=== PATIENT | female | born 1975 | race Caucasian/White ===

== ENCOUNTER 2017-01-12 10:51 | Emergency (ER) | payer SELFPAY ==
[~2017-01-12] VITALS: Ht 157.5 cm; Wt 78.0 kg
[~2017-01-12 10:51] MED LIST: VICODIN
[2017-01-12 10:58] VITALS: Ht 157.5 cm; Wt 78.0 kg
[2017-01-12] MEDS ORDERED: CEPH-443 PO (12:44)
--- NOTE | 2017-01-12 12:44 | ERD ---
ER Documentation Chief Complaint Date/Time DATE: 01/12/17 TIME: 12:41 Chief Complaint left ear pain x 4 days HPI This 41-year-old female who presents to the emergency department today complaining of left-sided ear pain for the past 3-4 days. She states that she had itching in her ear yesterday. States she has pain at the top of her chest as well when she rolled over in bed.. Patient took Zyrtec yesterday. States that 4 weeks ago she had a dental infection and have the tooth removed and was given antibiotics that she is unsure what the name of it was. Denies any fevers or chills. ROS All systems reviewed and are negative except as per history of present illness. Medications Home Meds Active Scripts Fluticasone Propionate (Flonase Allergy Relief) 9.9 Ml [place].susp, 1 SPRAY NASAL DAILY, #1 BOTTLE TO EACH NOSTRIL Prov:KARINA MCKAY PA-C 01/12/17 Naproxen* (Naprosyn*) 500 Mg Tablet, 500 MG PO BID Y for PAIN AND/OR INFLAMMATION, #30 TAB Prov:KARINA MCKAY PA-C 01/12/17 Cephalexin* (Keflex*) 500 Mg Capsule, 500 MG PO QID for 7 Days, CAP Prov:KARINA MCKAY PA-C 01/12/17 Reported Medications [Vicodin] No Conflict Check 02/02/11 Allergies Allergies: Coded Allergies: No Known Allergy (Verified , 07/21/13) PMhx/Soc History of Surgery: Yes (GALLBLADDER REMOVAL X1 YEAR AGO appy 2x c section) Anesthesia Reaction: No Hx Neurological Disorder: No Hx Respiratory Disorders: No Hx Cardiac Disorders: No Hx Psychiatric Problems: No Hx Miscellaneous Medical Probl: No Hx Alcohol Use: No Hx Substance Use: No Hx Tobacco Use: No Physical Exam Vitals Vital Signs Date Time Temp Pulse Resp B/P Pulse Ox O2 Delivery O2 Flow Rate FiO2 01/12/17 10:58 98.1 67 18 140/68 99 Physical Exam Const: NAD, talkative Head: Atraumatic Eyes: Normal Conjunctiva ENT: Ears TMs normal. No purulent drainage. Nose no drainage. Throat no erythema no exudate. Evidence of tooth removed left side of bottom molar. No evidence of abscess. Nontender mastoid. Tenderness left-sided TMJ joint. Neck: Full range of motion..~ No meningismus. Resp: Clear to auscultation bilaterally no absent breath sounds. No wheezing. Tenderness to palpation and tenderness with trunk rotation to the right Cardio: Regular rate and rhythm, no murmurs Abd: Soft, non tender, non distended. Normal bowel sounds Skin: No petechiae or rashes Neur: Awake and alert Psych: Normal Mood and Affect Procedures/MDM This 41-year-old female who presents to the emergency department today with multiple complaints. Patient's physical exam is benign. She did have some mild tenderness to palpation at her TM joint on the left side. TMs are normal and there is no evidence of infection at this time. He is nontender mastoid. Low suspicion for otitis media, otitis externa, mastoiditis. Patient is afebrile and otherwise well appearing. Patient's symptoms at this time is consistent with TMJ dysfunction versus eustachian tube dysfunction. Patient was complaining of some upper left-side chest pain after rolling over in bed a couple of days ago she has some tenderness palpation with compression and pain with trunk rotation. Did not felt the patient requires laboratory work or imaging at this time. Her respirations are 18 her oxygen saturation is 99%. Low suspicion for PE, abscess, pneumothorax, pleural effusion. Patient's symptoms appear more consistent with costochondritis given the tenderness to palpation and pain with trunk rotation. Patient is talkative and in no acute distress Patient was instructed to continue taking her Zyrtec. Also given a prescription for Flonase, Naprosyn and Keflex to treat possible dental infection. He is no evidence to suggest that patient has dental abscess at this time. At this time the patient is stable for discharge and outpatient management. Patient should follow up with their PCP in the next 1-2 days. They may return to the emergency department sooner for any persistent or worsening of symptoms. Patient understood and agreed with the plan. Discussed the patient with Dr. Skelton and he is in agreement with the plan. Departure Diagnosis: Primary Impression: Left ear pain Condition: KARINA Godinez PA-C Jan 12, 2017 12:44
[2017-01-12] MEDS ORDERED: NAPR-260 PO (12:45)
[2017-01-12] MEDS ORDERED: FLUT9.9S NASAL (12:45)
== END 2017-01-12 13:05 | disposition home or self-care (01) ==
LOC: FTE 10:51
DX: H92.02 Otalgia, left ear (principal)
CPT/HCPCS: 99283

== ENCOUNTER 2018-11-22 17:35 | Emergency (ER) | END 2018-11-22 22:05 | disposition home or self-care (01) ==

== ENCOUNTER 2018-12-09 00:56 | Emergency (ER) | payer OTHER ==
[~2018-12-09] VITALS: Ht 160 cm; Wt 77.7 kg
[~2018-12-09 00:56] MED LIST changes: +CEPH-443 PO; +FLUT9.9S NASAL; +IBUP-1542 PO; +NAPR-985 PO
[2018-12-09 01:01] VITALS: Ht 160 cm; Wt 77.7 kg
[2018-12-09] MEDS ORDERED: ACETAMINOPHEN 325 MG TAB PO STA (01:54)
[2018-12-09] MEDS ORDERED: SOD CHLORIDE 0.9% 1,000 ML IV STA (01:54)
--- NOTE | 2018-12-09 01:54 | ERD ---
ER Documentation Chief Complaint Chief Complaint left lower abd pain x 1 hour, hx of ovarian cyst, 9 weeks , no vb HPI 43-year-old woman complains of diffuse lower abdominal cramping for the last 1-2 hours. She is about 9 weeks by dates and on previously confirmed obstetric ultrasound which revealed an intrauterine at also revealed right ovarian cyst. She denies vaginal bleeding, no dysuria, no fevers or chills, no dizziness or loss of consciousness ROS All systems reviewed and are negative except as per history of present illness. Medications Home Meds Active Scripts Acetaminophen* (Tylenol*) 325 Mg Tablet, 2 TAB PO TID PRN for PAIN AND/OR INFLAMMATION, #60 TAB Prov:CHANTELLE BROWN MD 12/09/18 Reported Medications Ferrous Sulfate* (Ferrous Sulfate*) 325 Mg Tabec, 325 MG PO BID, TAB 12/09/18 Calcium Carbonate ([place]co-500) 500 Mg Tablet, 500 MG PO DAILY, TAB 12/09/18 Vit No.124/Iron/FA ( Vitamin Tablet) 1 Each Tablet, 1 EACH PO DAILY for SUPPLEMENT, TAB 12/09/18 Discontinued Reported Medications [Vicodin] No Conflict Check 02/02/11 Discontinued Scripts Ibuprofen* (Motrin*) 600 Mg Tab, 600 MG PO Q6H PRN for PAIN AND OR ELEVATED TEMP, #30 TAB Prov:ISIDRO SOUTH MD 08/05/18 Fluticasone Propionate (Flonase Allergy Relief) 9.9 Ml [place].susp, 1 SPRAY NASAL DAILY, #1 BOTTLE TO EACH NOSTRIL Prov:KARINA MCKAY PA-C 01/12/17 Naproxen* (Naprosyn*) 500 Mg Tablet, 500 MG PO BID PRN for PAIN AND/OR INFLAMMATION, #30 TAB Prov:KARINA MCKAY PA-C 01/12/17 Cephalexin* (Keflex*) 500 Mg Capsule, 500 MG PO QID for 7 Days, CAP Prov:KARINA MCKAY PA-C 01/12/17 Allergies Allergies: Coded Allergies: No Known Allergy (Verified , 11/22/18) PMhx/Soc History of Surgery: Yes (gallbladder removed,appendectomy, X2) Anesthesia Reaction: No Hx Neurological Disorder: No Hx Respiratory Disorders: No Hx Cardiac Disorders: No Hx Psychiatric Problems: No Hx Miscellaneous Medical Probl: Yes (kidney stones) Hx Alcohol Use: Yes (occasionally) Hx Substance Use: No Hx Tobacco Use: No Physical Exam Vitals Vital Signs Date Temp Pulse Resp B/P (MAP) Pulse Ox O2 O2 Flow FiO2 Time Delivery Rate 12/09/18 97.8 77 21 116/75 98 Room Air 03:15 (89) 12/09/18 97.8 76 21 120/74 98 Room Air 01:45 (89) 12/09/18 97.9 85 18 126/70 98 01:01 (88) Physical Exam GENERAL: Well-developed, well-nourished, well-hydrated, in no apparent distress, looks nontoxic in appearance HEENT: Moist mucous membranes, pink conjunctiva, no cervical spine tenderness or step-off deformities, no goiter, no jaundice or icterus, extraocular movements intact without pain. No submandibular induration, and no pharyngeal erythema NEURO: Alert and oriented 3, cranial nerves II through XII intact bilaterally, pupils equal round reactive to light, no focal deficits or facial asymmetry, sensation intact distally Strength 5/5 in upper and lower extremities bilaterally CARDIAC: Regular rate and rhythm, no murmurs rubs or gallops LUNGS: Clear bilaterally no wheezing crackles or stridor ABDOMEN: Soft nontender, no guarding, no rigidity, no rebound, no psoas sign no obturator sign. Normoactive bowel sounds SKIN: Warm and dry to touch, no abrasions, contusions, or hematomas, no lacerations, no ecchymosis, no target lesions, and without ulcers EXTREMITIES: No clubbing cyanosis or edema, calves are bilaterally symmetrical, no Homans sign, no popliteal cord sign. Distal pulses equal and bilateral PSYCH: Normal affect without agitation or irritability Result Diagram: 12/09/1820112/09/182 Results 24 hrs Laboratory Tests Test 12/09/18 02:02 12/09/18 02:07 White Blood Count 11.4 10^3/ul Red Blood Count 4.02 10^6/ul Hemoglobin 11.5 g/dl Hematocrit 35.2 % Mean Corpuscular Volume 87.6 fl Mean Corpuscular Hemoglobin 28.6 pg Mean Corpuscular Hemoglobin Concent 32.7 g/dl Red Cell Distribution Width 13.5 % Platelet Count 204 10^3/UL Mean Platelet Volume 10.8 fl Immature Granulocytes % 0.400 % Neutrophils % 81.5 % Lymphocytes % 13.4 % Monocytes % 3.3 % Eosinophils % 1.0 % Basophils % 0.4 % Nucleated Red Blood Cells % 0.0 /100WBC Immature Granulocytes # 0.040 10^3/ul Neutrophils # 9.3 10^3/ul Lymphocytes # 1.5 10^3/ul Monocytes # 0.4 10^3/ul Eosinophils # 0.1 10^3/ul Basophils # 0.0 10^3/ul Nucleated Red Blood Cells # 0.0 10^3/ul Prothrombin Time 12.6 Sec Prothrombin Time Ratio 1.0 INR International Normalized Ratio 0.93 Activated Partial Thromboplast Time 24.9 Sec Sodium Level 138 mmol/L Potassium Level 3.4 mmol/L Chloride Level 111 mmol/L Carbon Dioxide Level 17 mmol/L Anion Gap 10 Blood Urea Nitrogen 9 mg/dl Creatinine 0.46 mg/dl Est Glomerular Filtrat Rate mL/min > 60 mL/min Glucose Level 152 mg/dl Calcium Level 9.1 mg/dl Total Bilirubin 0.0 mg/dl Direct Bilirubin 0.00 mg/dl Indirect Bilirubin 0.0 mg/dl Aspartate Amino Transf (AST/SGOT) 22 IU/L Alanine Aminotransferase (ALT/SGPT) 14 IU/L Alkaline Phosphatase 73 IU/L Total Protein 7.1 g/dl Albumin 3.8 g/dl Globulin 3.30 g/dl Albumin/Globulin Ratio 1.15 Beta HCG, Quantitative 192090.0 mIU/ml Urine Color YELLOW Urine Clarity SLIGHTLY CLOUDY Urine pH 5.0 Urine Specific [place] 1.021 Urine Ketones NEGATIVE mg/dL Urine Nitrite NEGATIVE mg/dL Urine Bilirubin NEGATIVE mg/dL Urine Urobilinogen NEGATIVE mg/dL Urine Leukocyte Esterase NEGATIVE [place]/ul Urine Microscopic RBC 1 /HPF Urine Microscopic WBC 2 /HPF Urine Squamous Epithelial Cells FEW /HPF Urine Bacteria FEW /HPF Urine Mucus FEW /HPF Urine Hemoglobin NEGATIVE mg/dL Urine Glucose NEGATIVE mg/dL Urine Total Protein NEGATIVE mg/dl Current Medications Medications Dose Sig/Greg Start Time Status Last (Trade) Ordered Route PRN Stop Time Admin Dose Reason Admin Sodium 1,000 ml @ Q1H STAT 12/09/18 DC 12/09/18 Chloride 1,000 mls/hr IV 01:54 02:52 12/09/18 02:53 650 mg ONCE STAT 12/09/18 DC 12/09/18 Acetaminophen PO 01:54 02:49 (Tylenol 12/09/18 01:57 Tab) Procedures/MDM IV line was established patient was placed on hall monitor rhythm strip revealed a sinus rhythm at about 80 bpm with upright P and T waves. Patient was afebrile I administered 1 L normal saline IV and acetaminophen 650 mg p.o. x1. CBC and electrolytes are normal, liver function tests were normal, urinalysis was negative for infection, beta-hCG was elevated Obstetric ultrasound revealed moderate free fluid in left cul-de-sac, IUP noted, no ectopic seen I obtained emergent obstetric consultation with Dr. Sands who kindly agreed to consult the patient. She saw and evaluated the patient at the bedside and reviewed imaging studies and labs and provided recommendations to the patient and also recommended continued outpatient management. We have no indication at this time for admission, further imaging, or other treatment. Differential diagnoses considered, included but not limited to ovarian torsion, ectopic , ruptured ovarian cyst, cervicitis, sepsis, stroke, meningitis, encephalitis, pneumonia, appendicitis, cholecystitis, bowel obstruction, pyelonephritis, nephrolithiasis, cystitis, as well as metabolic, hematologic, and electrolyte abnormalities. As well as abscess, cellulitis, fractures, and dislocations. Patient feels much better at this time, and vital signs are normal, symptoms have improved. I did give strict instructions to return to the ED if symptoms continue or worsen, patient will otherwise follow-up with primary care physician. Patient understood instructions and agreed to plan. Disclaimer: Inadvertent spelling and grammatical errors are likely due to EHR /dictation software use and do not reflect on the overall quality of patient care. Also, please note that the electronic time recorded on this note does not necessarily reflect the actual time of the patient encounter. Departure Diagnosis: Primary Impression: Abdominal pain Abdominal location: generalized Qualified Codes: R10.84 - Generalized abdominal pain Additional Impression: First trimester Condition: CHANTELLE Gonzalez MD Dec 09, 2018 01:54
[2018-12-09] MEDS ORDERED: FER325 PO (02:24)
[2018-12-09] MEDS ORDERED: PREN-93 PO (02:24)
[2018-12-09] MEDS ORDERED: CALC500T11 PO (02:24)
[2018-12-09] MEDS ORDERED: ACET325T33 PO (05:54)
[2018-12-09 06:06] VITALS: BP 110/67; PULSE 75; RESP 17
--- NOTE | 2018-12-09 13:32 | CONS ---
Date/Time of Note Date/Time of Note DATE: 12/09/18 TIME: 13:25 Assessment/Plan Assessment/Plan Assessment/Plan 43 years old with single intrauterine at 9 weeks and history of ovarian cyst with abdominal pain. Her exam was unremarkable except mild lower abdominal pain. Ultrasound performed which revealed single intrauterine at 9 weeks and 4 days/week normal left ovary. There was a small amount of free fluid in the left adnexa. Right ovary was not visualized. Labs, ultrasound, outpatient follow-up discussed in detail with patient and her partner. I have discussed the right ovary was not seen in ultrasound. Sign and symptom of ovarian torsion, ruptured ovarian discussed with patient and her partner. Both expressed understanding all of their questions answered. I strongly recommend follow-up with her primary icer air conditioning in 2-3 days, come back to emergency department if continued to have abdominal pain. Result Diagram: 12/09/18 0202 12/09/18 0202 Results 24hrs Laboratory Tests Test 12/09/18 02:02 12/09/18 02:07 White Blood Count 11.4 #H Red Blood Count 4.02 L Hemoglobin 11.5 L Hematocrit 35.2 L Mean Corpuscular Volume 87.6 Mean Corpuscular Hemoglobin 28.6 L Mean Corpuscular Hemoglobin Concent 32.7 Red Cell Distribution Width 13.5 Platelet Count 204 Mean Platelet Volume 10.8 H Immature Granulocytes % 0.400 Neutrophils % 81.5 H Lymphocytes % 13.4 L Monocytes % 3.3 Eosinophils % 1.0 Basophils % 0.4 Nucleated Red Blood Cells % 0.0 Immature Granulocytes # 0.040 H Neutrophils # 9.3 H Lymphocytes # 1.5 Monocytes # 0.4 Eosinophils # 0.1 Basophils # 0.0 Nucleated Red Blood Cells # 0.0 Prothrombin Time 12.6 Prothrombin Time Ratio 1.0 INR International Normalized Ratio 0.93 Activated Partial Thromboplast Time 24.9 Sodium Level 138 Potassium Level 3.4 L Chloride Level 111 H Carbon Dioxide Level 17 L Anion Gap 10 Blood Urea Nitrogen 9 Creatinine 0.46 Est Glomerular Filtrat Rate mL/min > 60 Glucose Level 152 Calcium Level 9.1 Total Bilirubin 0.0 L Direct Bilirubin 0.00 Indirect Bilirubin 0.0 Aspartate Amino Transf (AST/SGOT) 22 Alanine Aminotransferase (ALT/SGPT) 14 Alkaline Phosphatase 73 Total Protein 7.1 Albumin 3.8 Globulin 3.30 H Albumin/Globulin Ratio 1.15 Beta HCG, Quantitative 914212.0 Urine Color YELLOW Urine Clarity SLIGHTLY CLOUDY A Urine pH 5.0 Urine Specific [place] 1.021 Urine Ketones NEGATIVE Urine Nitrite NEGATIVE Urine Bilirubin NEGATIVE Urine Urobilinogen NEGATIVE Urine Leukocyte Esterase NEGATIVE Urine Microscopic RBC 1 Urine Microscopic WBC 2 Urine Squamous Epithelial Cells FEW Urine Bacteria FEW A Urine Mucus FEW A Urine Hemoglobin NEGATIVE Urine Glucose NEGATIVE Urine Total Protein NEGATIVE Consultation Date/Type/Reason Date of Consultation: Dec 08, 2018 Type of Consult COMMUNICATION ENGINEER consult Reason for Consultation 9 weeks with abdominal pain Requesting Provider: CHANTELLE BROWN MD Hx of Present Illness Dear Dr. brown, Thank you very much for allowing me to participate in care of your patient. 43-year-old 001 with single intrauterine at 9 weeks and history of ovarian cyst presented to emergency department with complaining of generalized abdominal pain. She states good movement. She denies nausea, vomiting, shortness of breath, chest pain, headache, visual changes, vaginal bleeding or LOF. Constitutional: no complaints Respiratory: no complaints Cardiovascular: no complaints Additional Comments Negative all systems except refer to H&P Past Medical History Medical History: no pertinent history Allergies: Coded Allergies: No Known Allergy (Verified , 11/22/18) Past Surgical History Past Surgical Hx: no surgical history Family History Significant Family History: no pertinent family hx Social History Alcohol Use: none Smoking Status: Never smoker Drug Use: none Exam/Review of Systems Vital Signs Vitals Vital Signs Date Temp Pulse Resp B/P (MAP) Pulse Ox O2 O2 Flow FiO2 Time Delivery Rate 12/09/18 97.8 75 17 110/67 98 Room Air 06:06 (81) Exam Constitutional: alert, oriented Psych: nl mood/affect Neck: supple, non-tender Respiratory: clear to auscultation Cardiovascular: regular rate and rhythm Gastrointestinal: soft, nl liver, spleen Genitourinary - Female: nl adnexae, other (Normal external genitalia. Vagina normal with no bleeding or abnormal discharge. Cervix normal, no cervical motion tenderness. Uterus 10 weeks, mobile, nontender. Adnexa no palpable mass bilateral.) Extremities: normal pulses Neurological: nl mental status DANITA FRANCIS Dec 09, 2018 13:32
== END 2018-12-09 06:08 | disposition home or self-care (01) ==
LOC: E/R 00:56
DX: O26.891 Other specified pregnancy related conditions, first trimester (principal); R10.32 Left lower quadrant pain; Z3A.09 9 weeks gestation of pregnancy
CPT/HCPCS: 36415; 76801; 80053; 81001; 84702; 85025; 85610; 85730; 86850; 86900; 86901; J7030; Z7502; Z7610; 81003

== ENCOUNTER 2019-06-27 20:58 | Outpatient (CLI) | payer MEDICAID, OTHER ==
[~2019-06-27] VITALS: Ht 165.1 cm; Wt 90.4 kg
[~2019-06-27 20:58] MED LIST changes: +ACET325T33 PO; +CALC500T11 PO; -CEPH-443 PO; +FER325 PO; -FLUT9.9S NASAL; -IBUP-1542 PO; +IBUP800T48 PO; -NAPR-985 PO; +PREN-93 PO; -VICODIN
[2019-06-27 22:23] VITALS: Ht 165.1 cm; Wt 90.4 kg
[2019-06-27 22:26] VITALS: BP 135/67; PULSE 82; RESP 18
--- NOTE | 2019-06-28 05:34 | TRIAGE ---
OB Triage Datetime Report Generated by CPN: 06/28/2019 05:34 Datetime: 06/28/2019 00:17 Vaginal Exam Dilatation (cms): 0.0 Effacement (%): 50 Station: -1 Exam By: Agustina Perales RN Vaginal Bleeding: None Cervix, Consistency: Soft Cervix, Position: Posterior Datetime: 06/27/2019 21:40 Time of Arrival: 06/28/2019 20:50 EGA: 38.1 Arrived By: Wheelchair Arrived From: Home Chief Complaint: Right hand and arm numbness as well as tongue. Movement: Present Contractions: Denies/Absent Rupture of Membranes: Denies Vaginal Bleeding: None Vaginal Discharge: Denies Recent Sexual Intercouse: Denies Abdominal Trauma: Not Applicable Patient Complaints: Other Time Provider Notified: 06/27/2019 22:05 Provider Notified: Dr. Ferro Initial Plan: CEFM Datetime: 06/27/2019 21:29 Stage of : OB Triage Assessment Type: Triage Maternal Assessment Level of Consciousness: Keenly Alert, Responsive DTR's/Clonus: DTRs 2+; No Clonus Headache: Denies Blurred Vision: No Respiratory Effort: Unlabored; Regular Rhythm; Equal Expansion Breath Sounds, Left: Clear and Equal Breath Sounds, Right: Clear and Equal Nausea/Vomiting: Denies RUQ Epigastric Pain: Denies Lower Extremities Edema: Bilateral Lower Extremities Degree: 2+ Upper Extremities Edema: None Degree: None Facial Edema: None Temperature Route: Oral Fall Risk Assessment History of Falling: (0) No Secondary Diagnosis: (0) No Ambulatory Aid: (0) Bedrest/Nurse Assist IV Therapy: (0) No Gait: (0) Normal/Bedrest/Immobile Mental Status: (0) Oriented to Own Ability Fall Score: 0 Fall Risk Score Definition: No Risk: No action required Pain Assessment Pain Scale: 0 Pain Presence: None/Denies Pain Type: N/A
--- NOTE | 2019-06-28 05:42 | PN ---
Triage Information Date/Time June 27, 2019 Reason for visit: Patient here with complaint of right arm and hand numbness as well as numbness of the tongue for the last 3 days. Weeks of Gestation 38 weeks /Para 3 para 2 Diabetes: none Hypertention: none Additional information 43-year-old G3, P2 with IUP at 38 weeks and history of x2 presents with complaint of numbness of the right arm and hand as well as tongue numbness for the past 3 days. She denies any leaking of fluid, vaginal bleeding or decreased movement or any other complaints. Objective Vital Signs Date Temp Pulse Resp B/P (MAP) Pulse Ox O2 O2 Flow FiO2 Time Delivery Rate 06/27/19 98.1 82 18 135/67 Room Air 22:26 (89) Heart Rate: 130's Heart Rate Comments Category 1 Contractions: None Exam General appearance: Alert and oriented x4 does not appear to be in any acute distress Abdomen: Soft, gravid, fundal height consider gestational age NST: Category 1, BPP: 8/8 Neuro exam: Within normal limits Results/Medications Results 24 hrs Laboratory Tests Test 06/27/19 21:20 Urine Color STRAW Urine Clarity CLEAR Urine pH 6.0 Urine Specific [place] 1.010 Urine Ketones NEGATIVE Urine Nitrite NEGATIVE Urine Bilirubin NEGATIVE Urine Urobilinogen NEGATIVE Urine Leukocyte Esterase NEGATIVE Urine Hemoglobin NEGATIVE Urine Glucose 1+ H Urine Total Protein NEGATIVE Imaging Results PROCEDURE: US OB. CLINICAL INDICATION: Deceleration TECHNIQUE: Multiple sonographic images of the pelvis were obtained. The images were reviewed on a PACS workstation. COMPARISON: No prior studies are available for comparison. FINDINGS: There is a single live intrauterine . cardiac activity is identified at a rate of 133 beats per minute. presentation is cephalic. Placenta is anterior grade II. Biophysical profile score is as follows: Breathing 2 Movements 2 Tone 2 Fluid volume 2 Amniotic fluid index = 7.68 cm Total biophysical profile score = 8/8 IMPRESSION: Biophysical profile score = 8/ Disposition: Discharge Assessment/Plan IUP at 38 weeks No evidence of labor or PROM testing reassuring Numbness of the arm and tongue for the past 3 days Borderline low amniotic fluid. Patient to return to triage again after hydration in 24 hours to repeat MEREDITH Patient was sent to emergency room for neuro exam. Labor precautions kick count discussed Patient verbalized understanding all questions were answered. JOHN MCKINLEY MD Jun 28, 2019 05:42
== END 2019-06-28 00:45 | disposition home or self-care (01) ==
LOC: OBT 20:58 → L-D 21:00 → OBT 06-28 00:45
PROVIDERS: ATTEND Obstetrics & Gynecology
DX: O26.893 Other specified pregnancy related conditions, third trimester (principal); Z3A.38 38 weeks gestation of pregnancy; R20.0 Anesthesia of skin
CPT/HCPCS: 76818; 81003; G0463

== ENCOUNTER 2019-06-28 00:52 | Emergency (ER) | payer SELFPAY ==
[~2019-06-28] VITALS: Ht 162.6 cm; Wt 89.3 kg
[2019-06-28 01:00] VITALS: BP 134/63; PULSE 97; RESP 18; Ht 162.6 cm; Wt 89.3 kg
== END 2019-06-28 01:50 | disposition left against medical advice (07) ==
LOC: E/R 00:52
DX: Z53.21 Procedure and treatment not carried out due to patient leaving prior to being seen by health care provider (principal)

== ENCOUNTER 2019-06-28 22:01 | Inpatient (IN) | payer MEDICAID ==
[~2019-06-28] VITALS: Ht 162.6 cm; Wt 90.0 kg
[2019-06-28 22:11] VITALS: BP 127/71; PULSE 81; RESP 18
[2019-06-28 23:20] VITALS: Ht 162.6 cm; Wt 90.0 kg
[2019-06-28] MEDS ORDERED: ONDANSETRON 4 MG INJ IV PRN (23:30)
[2019-06-28] MEDS ORDERED: ACETAMINOPHEN 325 MG TAB PO PRN (23:30)
--- NOTE | 2019-06-28 23:46 | TRIAGE ---
OB Triage Datetime Report Generated by CPN: 06/28/2019 23:46 Datetime: 06/28/2019 22:16 Time of Arrival: 06/28/2019 21:53 EGA: 38.1 Arrived By: Ambulatory Arrived From: Home Chief Complaint: Here for repeat MEREDITH and NST Movement: Present Contractions: Denies/Absent Rupture of Membranes: Denies Vaginal Bleeding: None Vaginal Discharge: Denies Recent Sexual Intercouse: Denies Abdominal Trauma: Not Applicable Patient Complaints: Other Time Provider Notified: 06/28/2019 22:55 Provider Notified: Dr. Vance Initial Plan: NST/MEREDITH Datetime: 06/28/2019 22:11 Stage of : OB Triage Assessment Type: Triage Level of Consciousness: Keenly Alert, Responsive DTR's/Clonus: DTRs 2+; No Clonus Headache: Denies Blurred Vision: No Respiratory Effort: Unlabored; Regular Rhythm; Equal Expansion Breath Sounds, Left: Clear and Equal Breath Sounds, Right: Clear and Equal Nausea/Vomiting: Denies RUQ Epigastric Pain: Denies Lower Extremities Edema: Bilateral Lower Extremities Degree: 2+ Upper Extremities Edema: None Degree: None Facial Edema: None Temperature Route: Oral History of Falling: (0) No Secondary Diagnosis: (0) No Ambulatory Aid: (0) Bedrest/Nurse Assist IV Therapy: (0) No Gait: (0) Normal/Bedrest/Immobile Mental Status: (0) Oriented to Own Ability Fall Score: 0 Fall Risk Score Definition: No Risk: No action required Pain Scale: 0 Pain Presence: None/Denies Pain Type: N/A Datetime: 06/27/2019 21:40 EGA: 38.1
[2019-06-29] MEDS: LACTATED RINGER'S 1,000 ML IV SCH ×4 (00:17→19:22)
--- NOTE | 2019-06-29 14:27 | HP ---
Date/Time of Note Date/Time of Note DATE: 06/29/19 TIME: 14:21 OB - History Hx of Present Free Text/Dictation 43-year-old female 2 para 0 at 37 weeks and 1 day gestation admitted for induction of labor because of cholestasis of by bile acids drawn on 05/28/2019 Perinatologist was contacted and agreed with the management Patient had a normal bile acids on Actigall however remained symptomatic Last Menstrual Period: Oct 12, 2018 Estimated Due Date: Jul 19, 2019 : 2 Para: 0 Therapeutic : 1 Care: Good Care Ultrasounds: Normal mid trimester US Obstetrical Complications: Other (Advanced maternal age and elevated bile acids) Past Family/Social History * Past Medical, Surgical, Family and Obstetric Histories reviewed from chart. Blood Type: A+ Rubella: immune RPR/VDRL: Negative ( ) GBS Status: Negative HBsAG: Negative OB Admission Exam Vital Signs Vital Signs Vital Signs Date Temp Pulse Resp B/P (MAP) Pulse Ox O2 O2 Flow FiO2 Time Delivery Rate 06/28/19 98.0 81 18 127/71 Room Air 22:11 (89) Physical Exam HEENT: WNL Heart: Rhythm Normal Lungs: Clear, Equal Abdomen: WNL Extremities: Normal Reflexes: Normal Cervical Dilatation: None Effacement: 0% Station: -3 Membranes: Intact Heart Rate: 140's Accelerations: Accelerations Present Decelerations: No Decelerations Varibility: Marked Contractions on Admission: None Last 72 hours Lab Results CBC & BMP 06/29/19 00:10 OB Assessment/Plan Other Assessment: 37 weeks and 1 day gestation Elevated bile acids Currently has bodily itching Other plan: Start induction using Cytotec MARC LEWIS MD Jun 29, 2019 14:27
[2019-06-29] MEDS ORDERED: AZITHROMYCIN 500MG/NS (PMX) 250 ML IV SCH (14:30)
[2019-06-29] MEDS ORDERED: OXYTOCIN 30 UNITS/LR 500 ML IV SCH (14:30)
[2019-06-29] MEDS ORDERED: CEFAZOLIN 2 GM/50 ML (PMX) 50 ML IVPB SCH (14:30)
[2019-06-29] MEDS ORDERED: OXYTOCIN 30 UNITS/LR 500 ML BAG IV ONE (15:13)
[2019-06-29] MEDS ORDERED: OXYTOCIN 10 UNIT INJ ONE (15:21)
[2019-06-29] MEDS ORDERED: morphine SULFATE/PF (10 MG/10 ML) INJ ONE (15:21)
--- NOTE | 2019-06-29 15:36 | PREAC ---
Date/Time of Note Date/Time of Note DATE: 06/29/19 TIME: 15:35 Anesthesia Eval and Record Evaluation Time Pre-Procedure Interview DATE: 06/29/19 TIME: 15:35 Age 43 Sex female NPO: 8 hrs Preoperative diagnosis IUP Planned procedure Repeat Csection Past Medical History Past Medical History: Includes GI: Obesity : : Surgery & Anesthesia Issues No known issue Meds Anticoagulation: No Beta Nubia within 24 hr: No Reason Beta Nubia not given: Pt. not on B-Nubia Active Scripts Acetaminophen* (Tylenol*) 325 Mg Tablet, 2 TAB PO TID PRN for PAIN AND/OR INFLAMMATION, #60 TAB Prov:CHANTELLE BROWN MD 12/09/18 Reported Medications Ferrous Sulfate* (Ferrous Sulfate*) 325 Mg Tabec, 325 MG PO BID, TAB 12/09/18 Calcium Carbonate (Oysco-500) 500 Mg Tablet, 500 MG PO DAILY, TAB 12/09/18 Vit No.124/Iron/FA ( Vitamin Tablet) 1 Each Tablet, 1 EACH PO DAILY for SUPPLEMENT, TAB 12/09/18 Current Medications Lactated Ringer's 1,000 ml @ 150 mls/hr Q6H40M IV Last administered on 06/29/19at 14:23; Admin Dose 150 MLS/HR; Start 06/28/19 at 23:22 Acetaminophen (Tylenol Tab) 650 mg Q4H PRN PO .PAIN OR TEMP; Start 06/28/19 at 23:30 Ondansetron HCl (Zofran Inj) 4 mg Q6H PRN IV NAUSEA/VOMITING; Start 06/28/19 at 23:30 Cefazolin Sodium/ Dextrose 50 ml @ 100 mls/hr ONCE IVPB ; Start 06/29/19 at 14:30 Oxytocin/Lactated Ringer's 500 ml @ 125 mls/hr POST IV ; Start 06/29/19 at 14:30 Azithromycin 250 ml @ 250 mls/hr ONCE IV Last administered on 06/29/19at 14:54; Admin Dose 250 MLS/HR; Start 06/29/19 at 14:30 Meds reviewed: Yes Allergies Coded Allergies: No Known Allergy (Verified , 06/28/19) Allergies Reviewed: Yes Labs/Studies Labs Reviewed: Reviewed by anesthesiologist Result Diagram: 06/29/19 0010 Laboratory Tests 06/29/19 00:10 Blood Bank Test 06/29/19 00:10 Antibody Screen NEGATIVE Blood Type O POSITIVE Rh Immune Globulin Candidate NO test: Positive Studies: ECG Pre-procedure Exam Last vitals Vital Signs Date Temp Pulse Resp B/P (MAP) Pulse Ox O2 O2 Flow FiO2 Time Delivery Rate 06/28/19 98.0 81 18 127/71 Room Air 22:11 (89) Airway: Adequate mouth opening, Adequate thyromental dist Mallampati: Mallampati II Teeth: Normal Lung: Normal Heart: Normal ASA Physical Status ASA physical status: 2 Emergency: None Planned Anesthetic Neuraxial: Spinal Planned Pain Management Sub-arachniod narcotics, Parenteral pain med Pre-operative Attestations Prior to commencing anesthesia and surgery, the patient was re-evaluated, there was verification of: *The patient's identity *The results of appropriate recent lab work and preoperative vital signs *The above evaluation not changing prior to induction *Anesthetic plan, risk benefits, alternative and complications discussed with patient/family; questions answered; patient/family understands, accepts and wish es to proceed. FABIO AU MD Jun 29, 2019 15:36
--- NOTE | 2019-06-29 16:31 | HP ---
Date/Time of Note Date/Time of Note DATE: 06/29/19 TIME: 16:27 OB - History Hx of Present Free Text/Dictation 43-year-old female 3 para 2 at 38 weeks and 1 day gestation admitted for follow-up on his stress test 2 days ago She was noticed to have persistent uterine contractions and was admitted for rep eat section Cervix appeared to be shortened 1 cm open Last Menstrual Period: Sep 24, 2018 Estimated Due Date: Jul 11, 2019 : 3 Para: 2 Care: Good Care Ultrasounds: Normal mid trimester US Obstetrical Complications: Other (Advanced maternal age) Past Family/Social History * Past Medical, Surgical, Family and Obstetric Histories reviewed from chart. Blood Type: O+ Rubella: immune RPR/VDRL: Negative GBS Status: Positive HBsAG: Negative OB Admission Exam Vital Signs Vital Signs Vital Signs Date Temp Pulse Resp B/P (MAP) Pulse Ox O2 O2 Flow FiO2 Time Delivery Rate 06/28/19 98.0 81 18 127/71 Room Air 22:11 (89) Physical Exam HEENT: WNL Heart: Rhythm Normal Lungs: Clear, Equal Abdomen: WNL Extremities: Normal Reflexes: Normal Cervical Dilatation: 1cm Effacement: 25% Station: -3 Membranes: Intact Heart Rate: 140's Accelerations: Accelerations Present Decelerations: No Decelerations Varibility: Marked Contractions on Admission: 6-10 Minutes Apart Date/Time Contractions Began: ? Frequency of Contractions: 6 to 10 minutes Duration: Over 1 minute Intensity: Mild Last 72 hours Lab Results CBC & BMP 06/29/19 00:10 OB Assessment/Plan Reason for admission: section Other Assessment: Term gestation Previous x2 Persistent uterine contraction Other plan: Repeat section MARC LEWIS MD Jun 29, 2019 16:31
[2019-06-29] MEDS ORDERED: ACETAMINOPHEN 500 MG TAB PO STA (16:32)
[2019-06-29] MEDS ORDERED: KETOROLAC 30 MG INJ IV STA (16:32)
--- NOTE | 2019-06-29 16:37 | OPR ---
Operative Report Planned Procedure Procedure date Jun 29, 2019 Procedure(s) Repeat section Performed by see signature line Loan Approver: NEREIDA MOLINA MD Anesthesiologist: FABIO AU MD Pre-procedure diagnosis Term gestation Previous times Labor contractions [id number] Anesthesia Type: [id number] spinal Post-Procedure Post-procedure diagnosis Status post repeat delivery Findings Live Baby in SANDRO position Clear amniotic fluid Normal appearing right and left fallopian tubes and ovaries Estimated Blood Loss: 500 - 600 mls Specimen(s) none Grafts/Implant(s) none Complication(s) none Pt Condition post procedure: stable Disposition: PACU Procedure Description Under satisfactory anaesthesia a Pfannenstiel incision was made two fingerbreadth above and parallel to the symphysis of pubis around the previous scar and previous scar was removed Incision was extended laterally to the border of the Recti muscles on either sides. Incision was carried down with sharp and blunt dissection until fascia was reached. Anterior Recti muscle fascia was incised in mid portion and incision extended laterally to the border of skin incision. Fascia was mobilized from muscle superiorly and Recti muscles were from midline using sharp and blunt dissection. Peritoneum was visualized; Avoiding bowel and bladder it was incised . Incision was extended superiorly and inferiorly. Bladder blade was placed. Posterior peritoneum covering the lower segment of the uterus and lower segment of the uterus were incised.Low transverse ulexine incision was made on lower segment of the uterus. Incision extended laterally to the border of Round Lig. on either sides and baby was delivered from OT. position . Amniotic fluid appeared clear. Cord blood was obtained and cord had 3 vessels . Placenta was delivered spontaneously and appeared intact and complete. Intrauterine cavity was rubbed with a laparotomy sponge. Uterine incision was closed in 2 layers using running stitches of No1 Monocryl. Hemostasis appeared secure. Ovaries and Fallopian tubes were within normal limits. Announcing needle, lap sponge and instrument count to be correct abdomen was closed in layers as follows: Peritoneum and Recti muscles with running stitches of 2-0 Vicryl. Fascia with running stitch of No 1 PDS. Subcutaneous tissue with running stitches of 2-0 Monocryl and skin was closed using cosme. Patient tolerated the procedure well and was transferred to [facility] in good condition. MARC LEWIS MD Jun 29, 2019 16:37
--- NOTE | 2019-06-29 16:42 | PAC ---
Date/Time of Note Date/Time of Note DATE: 06/29/19 TIME: 16:41 Post-Anesthesia Notes Post-Anesthesia Note Last documented vital signs Vital Signs Date Temp Pulse Resp B/P (MAP) Pulse Ox O2 O2 Flow FiO2 Time Delivery Rate 06/28/19 98.0 81 18 127/71 Room Air 22:11 (89) Activity: WNL Respiratory function: WNL Cardiovascular function: WNL Mental status: Baseline Pain reasonably controlled: Yes Hydration appropriate: Yes Nausea/Vomiting absent: Yes Comments BP:112/56, P:78, Spo2:100%, T:98,9 FABIO AU MD Jun 29, 2019 16:42
[2019-06-29] MEDS ORDERED: morphine 2 MG INJ IV PRN (17:00)
[2019-06-29] MEDS ORDERED: ONDANSETRON 4 MG INJ IV PRN (17:00)
[2019-06-29] MEDS ORDERED: NALOXONE (0.4 MG/ML) INJ IV PRN (17:00)
[2019-06-29] MEDS ORDERED: DIPHENHYDRAMINE 50 MG INJ IV PRN (17:00)
[2019-06-29] MEDS ORDERED: VANCOMYCIN 1 GM (PMX) 250 ML IVPB ONE (17:30)
[2019-06-29 20:45] VITALS: BP 134/69; PULSE 78; RESP 18
[2019-06-29] MEDS ORDERED: LACTATED RINGER'S 1,000 ML IV SCH (21:37)
[2019-06-29 21:45] VITALS: BP 129/74; PULSE 81; RESP 19
[2019-06-29] MEDS ORDERED: METHYLERGONOVINE 0.2 MG INJ IM PRN (22:00)
[2019-06-29] MEDS ORDERED: OXYCODONE/ACETAMINOPHEN (5/325) TAB PO PRN (22:00)
[2019-06-29] MEDS ORDERED: MISOPROSTOL 200 MCG TAB PR PRN (22:00)
[2019-06-29] MEDS ORDERED: LANOLIN HPA 1 PKT TOP PRN (22:00)
[2019-06-29] MEDS ORDERED: CARBOPROST 250 MCG INJ IM PRN (22:00)
[2019-06-29] MEDS ORDERED: OXYTOCIN 30 UNITS/LR 500 ML IV PRN (22:00)
[2019-06-29] MEDS ORDERED: NA PHOSPHATE/BIPHOS 133 ML ENEMA PR PRN (22:00)
[2019-06-29] MEDS: CEFAZOLIN 2 GM/50 ML (PMX) 50 ML IVPB SCH (23:01)
[2019-06-30] VITALS: BP 124/75; PULSE 77; RESP 18
[2019-06-30] MEDS: LACTATED RINGER'S 1,000 ML IV SCH ×3 (02:02→15:22)
[2019-06-30 04:00] VITALS: BP 118/60; PULSE 69; RESP 19
[2019-06-30] MEDS: CLINDAMYCIN 300 MG CAP PO SCH ×4 (05:44→23:33)
[2019-06-30] MEDS: CEFAZOLIN 2 GM/50 ML (PMX) 50 ML IVPB SCH ×2 (07:00→14:43)
[2019-06-30 08:00] VITALS: BP 98/54; PULSE 78; RESP 16
[2019-06-30] MEDS: KETOROLAC 30 MG INJ IV PRN ×2 (08:26→14:50)
[2019-06-30] MEDS ORDERED: BISACODYL 10 MG SUPP PR ONE (09:00)
[2019-06-30] MEDS: SENNA/DOCUSATE NA (8.6MG/50MG) TAB PO SCH ×2 (09:38→20:57)
[2019-06-30 12:00] VITALS: BP 103/54; PULSE 78; RESP 17
[2019-06-30 16:00] VITALS: BP 110/59; PULSE 77; RESP 16
--- NOTE | 2019-06-30 17:33 | PN ---
Date/Time of Note Date/Time of Note DATE: 06/30/19 TIME: 17:33 Assessment/Plan VTE Prophylaxis VTE Prophylaxis Intervention: ambulation Lines/Catheters IV Catheter Type (from Nrsg): Peripheral IV Assessment/Plan Assessment/Plan Status post postop day #1 Continue to advance diet and ambulate Monitor vital signs Subjective 24 Hr Interval Summary No bowel movement but passing flatus Constitutional: no complaints, improved, ambulates, BM, flatus, urine output Pain Control: well controlled Exam/Review of Systems Vital Signs Vitals Vital Signs Date Temp Pulse Resp B/P (MAP) Pulse Ox O2 O2 Flow FiO2 Time Delivery Rate 06/30/19 98.2 77 16 110/59 95 Room Air 16:00 (76) Intake and Output 06/29/19 06/29/19 06/30/19 1515:00 23:00 07:00 IntakeIntake Total 1000 ml 2575 ml 1300 ml OutputOutput Total 1300 ml 1239 ml 1600 ml BalanceBalance -300 ml 1336 ml -300 ml Exam Free Text/Dictation Vital signs stable in general physical exam is unchanged Abdomen is soft and nontender and not distended with present bowel sounds Incision is covered Constitutional: alert, oriented, well developed Psych: no complaints, nl mood/affect Head: normocephalic, atraumatic Eyes: nl conjunctiva, EOMI, nl lids, nl sclera ENMT: nl external ears & nose, nl lips & teeth, nl nasal mucosa & septum, mucosa pink and moist Neck: supple, non-tender Respiratory: clear to auscultation, normal air movement Cardiovascular: regular rate and rhythm, nl pulses Gastrointestinal: soft, nl liver, spleen, non-tender Musculoskeletal: nl extremities to inspection, nl gait and stance Extremities: normal pulses Neurological: STREET SUPERVISOR II-XII intact, nl mental status, nl speech, nl strength Skin: nl turgor, rash or lesions Lymph: nl lymph nodes Results Result Diagram: 06/30/19 0435 MARC LEWIS MD Jun 30, 2019 17:33
[2019-06-30 19:35] VITALS: BP 118/64; PULSE 73; RESP 18
[2019-06-30] MEDS: HYDROCODONE/APAP (5/325) TAB PO PRN (19:35)
--- NOTE | 2019-06-30 20:49 | DELSUM ---
Delivery Summary A-C Datetime Report Generated by CPN: 06/30/2019 20:49 DELIVERY PERSONNEL Automobile Rental Representative: Angelicyoyashira, Leanna MATERNAL INFORMATION Delivery Anesthesia: Spinal Medications in Delivery: see anesthesia Delivery QBL (ml): 600 Placenta Cultured: No Maternal Complications: Other LABOR SUMMARY EDC: 07/11/2019 00:00 No. Babies in Womb: 1 Attempted: No Labor Anesthesia: None LABOR INFORMATION Reason for Induction: Not Applicable Group B Beta Strep: Positive Antibiotics # of Doses: 2 Antibiotics Time of Last Dose: 06/29/2019 15:35 Steroids Given: None Reason Steroids Not Administered: Not Applicable MEMBRANES Membranes Rupture Method: Artificial Rupture of Membranes: 06/29/2019 15:51 Length of Rupture (hr): 0.02 Amniotic Fluid Color: Clear Amniotic Fluid Amount: Moderate STAGES OF LABOR Stage 3 hr: 0 Stage 3 min: 1 CSECTION DELIVERY Primary Indication: Repeat Elective Other Primary Indication: PREVIOUS C/S Secondary Indication: N/A CSection Urgency: Non Elective CSection Incidence: Repeat Labor: No Labor Elective: Nonelective CSection Incision: Lower Uterine Transverse BABY A INFORMATION Delivery Date/Time: 06/29/2019 15:52 Method of Delivery: Born in Route : No : N/A Forceps: N/A Vacuum Extraction: N/A Shoulder Dystocia : N/A SHOULDER DYSTOCIA BABY A Infant Delivery Date/Time: 06/29/2019 15:52 PRESENTATION/POSITION BABY A Presentation: Cephalic Cephalic Presentation: Vertex Breech Presentation: N/A PLACENTA INFORMATION BABY A Placenta Delivery Time : 06/29/2019 15:53 Placenta Method of Delivery: Manual Removal Placenta Status: Delivered SCORES BABY A Heart Rate 1 min: >100 bpm Resp Effort 1 min: Good Cry Reflex Irritability 1 min: Cough/Sneeze/Pulls Away Muscle Tone 1 min: Active Motion Color 1 min: Body Denning, Extremit Blue Resuscitation Effort 1 min: Tactile Stimulation SCORE 1 MIN: 9 Heart Rate 5 min: >100 bpm Resp Effort 5 min: Good Cry Reflex Irritability 5 min: Cough/Sneeze/Pulls Away Muscle Tone 5 min: Active Motion Color 5 min: Body Denning, Extremit Blue Resuscitation Effort 5 min: Tactile Stimulation SCORE 5 MIN: 9 INFORMATION BABY A Gestational Age at Delivery: 38.2 Gestational Status: Early Term- 37- 38.6 Weeks Outcome : Liveborn, with signs of life Condition : Stable Sex: Male IDENTIFICATION/MEDS BABY A ID Band Number: [id number] ID Band Location: Right Leg; Left Arm Sensor Applied: Yes Sensor Number: [id number] Sensor Location : Cord Clamp Vitamin K Given : Not Given Erythromycin Given: Not Given WEIGHT/LENGTH BABY A Infant Birthweight (gm): 3795 Infant Weight (lb): 8 Infant Weight (oz): 6 Length (in): 20.00 Length (cm): 50.80 CORD INFORMATION BABY A No. Cord Vessels: 3 Nuchal Cord : N/A Cord Blood Taken: Yes Infant Suction: Mouth; Nose ASSESSMENT BABY A Complications: None Physical Findings at Delivery: Within Normal Limits Respirations: Appears Normal Suspect Artist/ALS Called : Yes Care By: MEJIA THOMAS Transferred To: Remains with Mother
[2019-06-30] MEDS: IBUPROFEN 800 MG TAB PO SCH (22:13)
[2019-07-01 03:30] VITALS: BP 119/68; PULSE 82
[2019-07-01] MEDS: HYDROCODONE/APAP (5/325) TAB PO PRN (03:30)
[2019-07-01] MEDS: CLINDAMYCIN 300 MG CAP PO SCH ×3 (05:37→18:14)
[2019-07-01] MEDS: IBUPROFEN 800 MG TAB PO SCH ×3 (05:37→22:27)
[2019-07-01 08:00] VITALS: BP 109/59; PULSE 79; RESP 20
--- NOTE | 2019-07-01 09:45 | DS ---
Date/Time of Note Date/Time of Note DATE: 07/01/19 TIME: 09:44 Discharge Summary Admission/Discharge Info Admit Date/Time Jun 28, 2019 at 22:55 Discharge Date/Time July 01 or July 02, 2019 Discharge Diagnosis Status post Patient Condition: Good Procedures Repeat delivery Hx of Present Illness 43-year-old female underwent repeat Hospital Course She had uneventful hospitalization course Discharge home on second or test day with good prognosis and condition Asked to refer to clinic in a day or 2 for staple removal Pelvic and bedrest instructions given Home Meds Active Scripts Acetaminophen* (Tylenol*) 325 Mg Tablet, 2 TAB PO TID PRN for PAIN AND/OR INFLAMMATION, #60 TAB Prov:CHANTELLE BROWN MD 12/09/18 Reported Medications Ferrous Sulfate* (Ferrous Sulfate*) 325 Mg Tabec, 325 MG PO BID, TAB 12/09/18 Calcium Carbonate (Oysco-500) 500 Mg Tablet, 500 MG PO DAILY, TAB 12/09/18 Vit No.124/Iron/FA ( Vitamin Tablet) 1 Each Tablet, 1 EACH PO DAILY for SUPPLEMENT, TAB 12/09/18 Follow-up Plan To 3 days for staple removal in clinic Primary Care Provider Jackson Walker MD Time spent on discharge: > 30 minutes MARC LEWIS MD Jul 01, 2019 09:45
--- NOTE | 2019-07-01 09:46 | DS ---
Date/Time of Note Date/Time of Note Home today or next day DATE: 07/01/19 TIME: 09:45 Obstetrical Discharge Record Final Diagnosis Final Diagnosis: Term delivered Other Final Diagnosis Status post Section Section: Repeat Condition on Discharge Physical Assessment Last Vitals: Notes Voiding: Yes Bowel Movement: Yes Breast: Soft, non-tender, Filling Fundus: Firm Abdomen and Incision: Abdomen is soft with firm fundus Abdomen does not seem distended and bowel sounds are present Incision is healing well without induration and no erythema Calf Tenderness: No Patient Condition: Good MARC LEWIS MD Jul 01, 2019 09:46
--- NOTE | 2019-07-01 09:48 | PD.PPDC ---
SYSTEMS MANAGER Discharge Instruction Provider Information Physician Information 43-year-old female had a repeat section Diagnosis [id number] Final Diagnosis: [id number] Status post Condition [id number] Patient Condition: Syqtp8h Good Diet [id number] Diet: Clxsv8x Resume Regular Diet Activity/Restrictions [id number] Activity: Kkrvw8u May Shower [id number] Restrictions: Gxypf6t No Exercising No Lifting Nothing in the Vagina [id number] Return to Work or School: [id number] Sep 03, 2019 Wound/Drain Care Instructions [id number] Wound/Drain Care Instructions: Ewwsh9y Keep clean and dry Follow-up Follow-up with Physician: 2, 3, Day/Days (In clinic for staple removal) Return to clinic for 2 Jfckl4Mo OB Instructions: Mypih7g Breast Tenderness Depression Comment: Pelvic rest no hard activity for 2 months [id number] Surgical Instructions: Blefj0c Incisional Drainage Incisional Redness MARC LEWIS MD Jul 01, 2019 09:48
[2019-07-01] MEDS: SENNA/DOCUSATE NA (8.6MG/50MG) TAB PO SCH ×2 (09:52→21:00)
[2019-07-01] MEDS ORDERED: ACETAMINOPHEN 325 MG TAB PO PRN (10:00)
[2019-07-01 16:30] VITALS: BP 98/57; PULSE 72; RESP 20
[2019-07-01 20:00] VITALS: BP 136/66; PULSE 84; RESP 18
[2019-07-02] MEDS: CLINDAMYCIN 300 MG CAP PO SCH ×3 (00:22→12:07)
[2019-07-02 04:15] VITALS: BP 98/52; PULSE 70; RESP 18
[2019-07-02] MEDS: IBUPROFEN 800 MG TAB PO SCH ×2 (06:03→13:43)
[2019-07-02 08:00] VITALS: BP 140/63; PULSE 77; RESP 18
[2019-07-02] MEDS ORDERED: MEASLES,MUMPS,RUBELLA VACCINE INJ SC* ONE (09:00)
[2019-07-02] MEDS: SENNA/DOCUSATE NA (8.6MG/50MG) TAB PO SCH (09:00)
[2019-07-02] MEDS ORDERED: DIPHTH/TET/ACEL PERTUSS (ADULT) 0.5 ML VIAL IM* ONE (09:00)
[2019-07-02] MEDS: HYDROCODONE/APAP (5/325) TAB PO PRN (10:17)
== END 2019-07-02 15:00 | disposition home or self-care (01) | DRG 788 ==
LOC: OBT 22:01 → L-D 22:02 → OBT 22:55 → L-D 06-29 01:20 → MS1 06-29 20:26
PROVIDERS: ADMIT Obstetrics & Gynecology; ATTEND Obstetrics & Gynecology
PROC: 10D00Z1 Extraction of Products of Conception, Low, Open Approach (ICD-10-PCS; principal; 2019-06-29 16:00)
DX: O34.211 Maternal care for low transverse scar from previous cesarean delivery (principal); O99.214 Obesity complicating childbirth; Z3A.38 38 weeks gestation of pregnancy; Z37.0 Single live birth
CPT/HCPCS: 76815; 76816; 76818; 81003; 85025; 85610; 85730; 86592; 86850; 86900; 86901; 87340; 90715; 99464; G0463; J0456; J0690; J1885; J2270; J2274; J2405; J2590; J3370; J7120